=== PATIENT | female | born 1975 | race Caucasian/White ===

== ENCOUNTER → 2017-11-24 | Outpatient (CLI) | payer OTHER ==
--- NOTE | 2017-11-26 12:26 | MM ---
Reason for exam: screening (asymptomatic). Last mammogram was performed 2 years and 10 months ago. History: Family history of premenopausal breast cancer in aunt at age 38. Took hormonal contraceptives for 2 years. Physical Findings: A clinical breast exam by your physician is recommended on an annual basis and results should be correlated with mammographic findings. MG Screening Mammo w CAD Bilateral CC and MLO view(s) were taken. Prior study comparison: February 07, 2015, bilateral MG diagnostic mammo w CAD FL[facility]. November 14, 2013, bilateral MG diagnostic mammo w CAD [facility]. The breast tissue is heterogeneously dense. This may lower the sensitivity of mammography. No significant changes when compared with prior studies. ASSESSMENT: Benign, BI-RAD 2 RECOMMENDATION: Routine screening mammogram of both breasts in 1 year.
== END | disposition home or self-care (01) ==
LOC: RADMAMWWP 12:45
PROVIDERS: ATTEND Internal Medicine
DX: Z12.31 Encounter for screening mammogram for malignant neoplasm of breast (principal)
CPT/HCPCS: 77067

== ENCOUNTER 2017-11-25 07:32 | Day surgery (SDC) | payer OTHER ==
[2017-11-20 10:03] VITALS: BMI 29.2
[~2017-11-25 07:32] MED LIST: LACTATED RINGERS 1,000 ML IV SCH
[2017-11-25 08:04] VITALS: TEMP 98.8
[2017-11-25] MEDS ORDERED: PROPOFOL 10 MG/ML 20 ML VIAL IV ONE (08:38)
--- NOTE | 2017-11-25 09:05 | P.PCN ---
Date of Procedure: 11/25/17 Procedure(s) Performed: BRIEF HISTORY: Patient is a 42-year-old pleasant white female, scheduled for an elective colonoscopy as a part of evaluation of prior history of colon polyps and family history of colon cancer. Her mother was diagnosed with colon cancer at age 42. PROCEDURE PERFORMED: Colonoscopy. PREOPERATIVE DIAGNOSIS: History of colon polyps/family history of colon cancer. IV sedation per Anesthesia. PROCEDURE: After informed consent was obtained, the patient, was brought into the endoscopy unit. IV sedation was administered by Anesthesia under continuous monitoring. Digital rectal examination was normal. Initially the Olympus CF- 160 flexible video colonoscope was then inserted in the rectum, gradually advanced into the cecum without any difficulty. Careful examination was performed as the scope was gradually being withdrawn. Ileocecal valve and the appendiceal orifice were visualized and appeared normal. Prep was excellent. Mucosa of the cecum, ascending colon, transverse colon, descending colon, sigmoid colon, and rectum appeared normal. Retroflexion was performed in the rectum and no lesions were seen. The patient tolerated the procedure well. IMPRESSION: Normal-appearing colon from rectum to cecum with no evidence of colorectal neoplasia . RECOMMENDATIONS: Findings of this examination were discussed with the patient is a family. She was advised to have a repeat [place] colonoscopy in 5 years from now because of family history of colon cancer.
[2017-11-25 09:13] VITALS: RESP 18
[2017-11-25 09:25] VITALS: BP 118/75; PULSE 81
== END 2017-11-25 10:53 | disposition home or self-care (01) ==
LOC: ORWHC2ENDO 07:32
PROVIDERS: ATTEND Internal Medicine Gastroenterology
DX: Z12.11 Encounter for screening for malignant neoplasm of colon (principal); Z86.010 Personal history of colon polyps; Z80.0 Family history of malignant neoplasm of digestive organs; G40.909 Epilepsy, unspecified, not intractable, without status epilepticus; H54.7 Unspecified visual loss; R41.3 Other amnesia; Z79.82 Long term (current) use of aspirin; Z79.1 Long term (current) use of non-steroidal anti-inflammatories (NSAID); Z79.891 Long term (current) use of opiate analgesic; Z79.899 Other long term (current) drug therapy; Z91.041 Radiographic dye allergy status; Z88.5 Allergy status to narcotic agent
CPT/HCPCS: J2704; G0105

== ENCOUNTER → 2019-07-19 | Outpatient (CLI) | payer OTHER ==
--- NOTE | 2019-07-19 14:00 | MM ---
Reason for exam: screening (asymptomatic). Last mammogram was performed 1 year and 8 months ago. History: Family history of premenopausal breast cancer in aunt at age 38. Took hormonal contraceptives for 2 years. Physical Findings: A clinical breast exam by your physician is recommended on an annual basis and results should be correlated with mammographic findings. MG Screening Mammo w CAD Bilateral CC and MLO view(s) were taken. Prior study comparison: November 24, 2017, bilateral MG screening mammo w CAD. February 07, 2015, bilateral MG diagnostic mammo w CAD [facility]. The breast tissue is heterogeneously dense. This may lower the sensitivity of mammography. Asymmetric breast tissue left stable upper aspect. There is no discrete abnormality. ASSESSMENT: Negative, BI-RAD 1 RECOMMENDATION: Routine screening mammogram of both breasts in 1 year.
== END ==
LOC: RADMAMWWP 10:41
PROVIDERS: ATTEND Nurse Practitioner Family
DX: Z12.31 Encounter for screening mammogram for malignant neoplasm of breast (principal)
CPT/HCPCS: 77067

== ENCOUNTER → 2020-08-08 | Outpatient (CLI) | payer OTHER | END | disposition home or self-care (01) | LOC: LABWHC1 15:31 | PROVIDERS: ATTEND Family Medicine | DX: R05 Cough (principal); R06.02 Shortness of breath | CPT/HCPCS: U0003; C9803 ==

== ENCOUNTER → 2020-08-09 | Outpatient (CLI) | payer OTHER ==
--- NOTE | 2020-08-14 11:37 | MM ---
Reason for exam: screening (asymptomatic). Last mammogram was performed 1 year and 1 month ago. History: Patient has history of other cancer at age 43. Family history of premenopausal breast cancer in aunt at age 38. Took hormonal contraceptives for 2 years. Physical Findings: A clinical breast exam by your physician is recommended on an annual basis and results should be correlated with mammographic findings. MG Screening Mammo w CAD Bilateral CC and MLO view(s) were taken. Prior study comparison: July 19, 2019, bilateral MG screening mammo w CAD. November 24, 2017, bilateral MG screening mammo w CAD. No significant changes when compared with prior studies. ASSESSMENT: Benign, BI-RAD 2 RECOMMENDATION: Routine screening mammogram of both breasts in 1 year.
== END | disposition home or self-care (01) ==
LOC: RADMAMWWP 14:42
PROVIDERS: ATTEND Family Medicine
DX: Z12.31 Encounter for screening mammogram for malignant neoplasm of breast (principal)
CPT/HCPCS: 77067

== ENCOUNTER 2021-01-11 09:51 | Day surgery (SDC) | payer OTHER ==
[2021-01-09 14:57] VITALS: BMI 26.0
[~2021-01-11 09:51] MED LIST changes: +LIDOCAINE 1% (10MG/ML) FOR IV START INTRADERMA PRN
[2021-01-11] MEDS ORDERED: LACTATED RINGERS 1,000 ML IV ONE (10:01)
[2021-01-11 10:08] VITALS: TEMP 98.2
[2021-01-11] MEDS ORDERED: PROPOFOL 10 MG/ML 20 ML VIAL IV ONE (10:33)
[2021-01-11] MEDS ORDERED: LIDOCAINE 1% INJ 10MG/ML (20 ML MDV) ONE (10:33)
--- NOTE | 2021-01-11 10:51 | P.PCN ---
Date of Procedure: 01/11/21 Procedure(s) Performed: BRIEF HISTORY: Patient is a 45-year-old pleasant white female scheduled for an elective colonoscopy as a part of intermittent rectal bleeding. She also has family history of colon cancer diagnosed in her mother at age 42. Her last colonoscopy was 3 years ago. PROCEDURE PERFORMED: Colonoscopy. PREOPERATIVE DIAGNOSIS: Rectal bleeding and family history of colon cancer. IV sedation per Anesthesia. PROCEDURE: After informed consent was obtained, the patient, was brought into the endoscopy unit. IV sedation was administered by Anesthesia under continuous monitoring. Digital rectal examination was normal. Initially the Olympus CF-160 flexible video colonoscope was then inserted in the rectum, gradually advanced into the cecum without any difficulty. Careful examination was performed as the scope was gradually being withdrawn. Ileocecal valve and the appendiceal orifice were visualized and appeared normal. Prep was excellent. Mucosa of the cecum, ascending colon, transverse colon, descending colon, sigmoid colon, and rectum appeared normal. Retroflexion was performed in the rectum and no lesions were seen. The patient tolerated the procedure well. IMPRESSION: Normal-appearing colon from rectum to cecum no evidence of colitis or colorectal neoplasia . RECOMMENDATIONS: Findings of this examination were discussed with the patient as well as a family. She was advised to be a high-fiber diet and take fiber supplements a regular basis. She can have a repeat screening colonoscopy in 5 years.
[2021-01-11 10:56] VITALS: BP 109/73; PULSE 79; RESP 16
== END 2021-01-11 11:35 | disposition home or self-care (01) ==
LOC: ORWHC2ENDO 09:51
PROVIDERS: ATTEND Internal Medicine Gastroenterology
DX: K62.5 Hemorrhage of anus and rectum (principal); Z80.0 Family history of malignant neoplasm of digestive organs; M54.2 Cervicalgia; H54.8 Legal blindness, as defined in USA; F41.9 Anxiety disorder, unspecified; F32.9 Major depressive disorder, single episode, unspecified; R41.3 Other amnesia; G43.909 Migraine, unspecified, not intractable, without status migrainosus; Z79.82 Long term (current) use of aspirin; Z79.899 Other long term (current) drug therapy; Z88.5 Allergy status to narcotic agent; Z91.048 Other nonmedicinal substance allergy status
CPT/HCPCS: 45378; J2001; J2704

== ENCOUNTER 2022-02-10 18:51 | Emergency (ER) | payer OTHER ==
[2022-02-10 19:00] VITALS: BP 133/82; PULSE 60; RESP 20; TEMP 97.7
--- NOTE | 2022-02-10 19:25 | XR ---
EXAMINATION TYPE: XR knee complete LT DATE OF EXAM: 02/10/2022 COMPARISON: NONE HISTORY: Pain TECHNIQUE: 3 views FINDINGS: There is no evidence of fracture nor dislocation. Joint spaces are normal. No sign of knee joint effusion. IMPRESSION: Negative left knee exam. No fracture
[2022-02-10] MEDS ORDERED: ACET/COD 300 MG/30 MG STARTER PACK 6 TAB BTL PO STA (20:04)
--- NOTE | 2022-02-10 20:07 | ED ---
Lower Extremity Injury HPI - General Chief Complaint: Extremity Injury, Lower Stated Complaint: lt knee Time Seen by Provider: 02/10/22 19:40 Source: patient, RN notes reviewed Mode of arrival: ambulatory Limitations: no limitations - History of Present Illness Initial Comments: This is a 46-year-old female who presents to the emergency department for left knee pain. Patient states that 5 days ago, she was walking, and heard a pop in her knee. Since then, she has continued to hear more pops and crunches in her knee. The pain has continued to progress, and she is having difficulty bending down at work. 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 She has had multiple issues with that knee in the past due to a history of running track when she was younger. She's never seen an orthopedic provider, states that [facility]. She is taking Tylenol, however she is unable to take NSAIDs due to a new medication she started while she is in the process of being worked up for bladder cancer. She tried applying heat to the knee last night, and wonders if that made her symptoms worse, she states that ice was more helpful. Denies any fevers, chills, sore throat, cough, dyspnea, chest pain, palpitations, abdominal pain, nausea, vomiting, diarrhea, back pain, or headaches. MD Complaint: knee injury Onset/Timin -: days(s) Injury: Knee: Left - Related Data Home Medications Medication Instructions Recorded Confirmed Aspirin EC [Ecotrin Low Dose] 81 mg PO DAILY 11/20/17 01/09/21 Propranolol [Inderal] 40 mg PO DAILY PRN 01/09/21 01/09/21 Previous Rx's Medication Instructions Recorded Acetaminophen-Codeine 300-30mg 1 tab PO Q6H PRN 3 Days #12 tablet 02/10/22 [Tylenol w/codeine #3] Allergies Allergy/AdvReac Type Severity Reaction Status Date / Time meperidine HCl [From Demerol] Allergy Nausea & Verified 02/10/22 19:00 Vomiting propoxyphene napsylate Allergy Nausea & Verified 02/10/22 19:00 [From Darvocet-N] Vomiting mri iodine Allergy Anaphylaxis Uncoded 02/10/22 19:00 Review of Systems ROS Statement: Those systems with pertinent positive or pertinent negative responses have been documented in the HPI. ROS Other: All systems not noted in ROS Statement are negative. Past Medical History Past Medical History: Eye Disorder, Memory Impairment, Neurologic Disorder Additional Past Medical History / Comment(s): MIGRAINES. 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 NO SEIZURES SINCE 08/2106 WHILE IN THE HOSPITAL. CHRONIC NECK PAIN, in AUGUST AND NOVEMBER HAD BLOOD AFTER BM History of Any Multi-Drug Resistant Organisms: None Reported Past Surgical History: Appendectomy, Cholecystectomy, Hysterectomy Additional Past Surgical History / Comment(s): COLONOSCOPY Past Anesthesia/Blood Transfusion Reactions: No Reported Reaction Past Psychological History: Anxiety, Depression Smoking Status: Never smoker Past Alcohol Use History: None Reported Past Drug Use History: None Reported - Past Family History Mother Family Medical History: Cancer General Exam Limitations: no limitations General appearance: alert, in no apparent distress Head exam: Present: atraumatic, normocephalic, normal inspection Respiratory exam: Present: normal lung sounds bilaterally. Absent: respiratory distress, wheezes, rales, rhonchi, stridor Cardiovascular Exam: Present: regular rate, normal rhythm, normal heart sounds. Absent: systolic murmur, diastolic murmur, rubs, gallop, clicks Extremities exam: Present: other (Tenderness and mild swelling over the left patella. Limited active and passive ROM secondary to pain.) Neurological exam: Present: alert, oriented X3, CN II-XII intact Psychiatric exam: Present: normal affect, normal mood Skin exam: Present: warm, dry, intact, normal color. Absent: rash Course Vital Signs 02/10/22 18:58 Temperature 97.7 F Pulse Rate 60 Respiratory 20 Rate Blood Pressure 133/82 O2 Sat by Pulse 100 Oximetry Medical Decision Making - Medical Decision Making This is a 46-year-old female who presents to the emergency department for left knee pain. X-ray reveals no acute osseous abnormalities. Physical exam does reveal tenderness and swelling over the left patella. Tylenol #3 was prescribed as the patient is unable to take NSAIDs and Tylenol has not been effective. Kn ee immobilizer was applied. Advised she use this or purchase [id number] knee brace or use an Akira bandage for stability and to limit bending of the knee, which can further exacerbate the injury. Information for follow-up with [facility] provided, advised she contact them for a follow-up appointment. Return precautions reviewed in depth, the patient is instructed to return to the emergency department with any new, worsening, or concerning symptoms. Patient verbalized understanding. This case was discussed in detail with the attending ED physician. Presentation, findings, and treatment plan discussed in detail as well. - Radiology Data Radiology results: report reviewed, image reviewed Disposition Clinical Impression: Knee sprain Disposition: HOME SELF-CARE Instructions (If sedation given, give patient instructions): Knee Sprain (ED), Knee Immobilizer (ED) Additional Instructions: Return to the emergency department with any new, worsening, or concerning symptoms. Contact orthopedics as listed below for a follow-up appointment. Use the knee immobilizer as needed for stability and to avoid bending the knee. You may also purchase a knee brace over the counter or use an Akira bandage if that is more comfortable. Prescriptions: Acetaminophen-Codeine 300-30mg [Tylenol w/codeine #3] 1 tab PO Q6H PRN 3 Days #12 tablet PRN Reason: Pain Is patient prescribed a controlled substance at d/c from ED?: Yes When asked, does pt state using other controlled substances?: No If prescribed controlled substance>3 days was MAPS reviewed?: Prescribed <3 Days Referrals: Tremayne Marina MD [Primary Care Provider] - 1-2 days Saad Alfonso DO [Doctor of Osteopathic Medicine] - 1-2 days
== END 2022-02-10 21:23 | disposition home or self-care (01) ==
LOC: EC 18:51
DX: S83.92XA Sprain of unspecified site of left knee, initial encounter (principal); Z88.6 Allergy status to analgesic agent; Z88.5 Allergy status to narcotic agent; Z91.041 Radiographic dye allergy status; X50.9XXA Other and unspecified overexertion or strenuous movements or postures, initial encounter; Y93.01 Activity, walking, marching and hiking
CPT/HCPCS: 73562; 99283; L1830

== ENCOUNTER 2022-09-30 12:05 | Emergency (ER) | payer BC, OTHER ==
[2022-09-30 12:47] VITALS: TEMP 96.8
[2022-09-30] MEDS ORDERED: KETOROLAC 15 MG/ML 1 ML VIAL IM STA (13:11)
[2022-09-30] MEDS ORDERED: MORPHINE SULFATE 4 MG/ML SYRINGE IM STA (13:11)
[2022-09-30] MEDS ORDERED: BACLOFEN 10 MG TAB PO ONE (13:11)
--- NOTE | 2022-09-30 13:22 | XR ---
EXAMINATION TYPE: XR lumbar spine 2 or 3V DATE OF EXAM: 09/30/2022 CLINICAL HISTORY: pain TECHNIQUE: Three views of the lumbar spine are submitted. COMPARISON: None. FINDINGS: There are 5 lumbar type vertebral bodies identified. The lumbar spine shows satisfactory alignment w ithout evidence of acute fracture or dislocation. Vertebral body heights are within normal limits. Disc spaces are within normal limits. The overlying soft tissue appears unremarkable. Cholecystectom y clips in the right upper quadrant. IMPRESSION: No acute fracture or dislocation is seen in the lumbar spine.
--- NOTE | 2022-09-30 13:22 | ED ---
Back Pain HPI - General Chief Complaint: Back Pain/Injury Stated Complaint: recheck Time Seen by Provider: 09/30/22 12:46 Source: patient, RN notes reviewed Mode of arrival: ambulatory Limitations: no limitations - History of Present Illness Initial Comments: This is a 47-year-old female who presents to the emergency department for low back pain. Patient states that she was bending over at work yesterday, and heard a pop in her lower back. She has since had ongoing pain and intermittent spasms to the lower back. Denies any loss of bowel/bladder control or saddle anesthesia. States that she does have chronic back problems that have since been exacerbated by this injury. She's not currently taking any medication for her pain. Denies any fevers, chills, sore throat, cough, dyspnea, chest pain, palpitations, abdominal pain, nausea, vomiting, diarrhea, or headaches. MD Complaint: back pain Onset/Timin -: days(s) Place: work Context: bending - Related Data Home Medications Medication Instructions Recorded Confirmed Aspirin EC [Ecotrin Low Dose] 81 mg PO DAILY 11/20/17 01/09/21 Propranolol [Inderal] 40 mg PO DAILY PRN 01/09/21 01/09/21 Previous Rx's Medication Instructions Recorded Acetaminophen-Codeine 300-30mg 1 tab PO Q6H PRN 3 Days #12 tablet 02/10/22 [Tylenol w/codeine #3] Cyclobenzaprine [Flexeril] 10 mg PO TID PRN #15 tab 09/30/22 Diclofenac Sodium [Voltaren] 75 mg PO BID PRN #15 tab 09/30/22 Allergies Allergy/AdvReac Type Severity Reaction Status Date / Time meperidine HCl [From Demerol] Allergy Nausea & Verified 09/30/22 12:34 Vomiting propoxyphene napsylate Allergy Nausea & Verified 09/30/22 12:34 [From Darvocet-N] Vomiting shellfish derived [Shellfish] Allergy Anaphylaxis Verified 09/30/22 12:34 mri iodine Allergy Anaphylaxis Uncoded 09/30/22 12:34 Review of Systems ROS Statement: Those systems with pertinent positive or pertinent negative responses have been documented in the HPI. ROS Other: All systems not noted in ROS Statement are negative. Past Medical History Past Medical History: Eye Disorder, Memory Impairment, Neurologic Disorder Additional Past Medical History / Comment(s): MIGRAINES. 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 NO SEIZURES SINCE 08/2106 WHILE IN THE HOSPITAL. CHRONIC NECK PAIN, in AUGUST AND NOVEMBER HAD BLOOD AFTER BM. COVID 08/21 History of Any Multi-Drug Resistant Organisms: None Reported Past Surgical History: Appendectomy, Cholecystectomy, Hysterectomy Additional Past Surgical History / Comment(s): COLONOSCOPY Past Anesthesia/Blood Transfusion Reactions: No Reported Reaction Past Psychological History: Anxiety, Depression Smoking Status: Never smoker Past Alcohol Use History: None Reported Past Drug Use History: None Reported - Past Family History Mother Family Medical History: Cancer General Exam Limitations: no limitations General appearance: alert, in distress Head exam: Present: atraumatic, normocephalic, normal inspection Respiratory exam: Present: normal lung sounds bilaterally. Absent: respiratory distress, wheezes, rales, rhonchi, stridor Cardiovascular Exam: Present: regular rate, normal rhythm, normal heart sounds. Absent: systolic murmur, diastolic murmur, rubs, gallop, clicks Back exam: Present: normal inspection, tenderness (left lower back), other (Tenderness to palpation over the left lower back.) Neurological exam: Present: alert, oriented X3, CN II-XII intact Psychiatric exam: Present: normal affect, normal mood Skin exam: Present: warm, dry, intact, normal color. Absent: rash Course Vital Signs 09/30/22 09/30/22 09/30/22 12:29 12:46 14:24 Temperature 97.9 F 96.8 F L 96.8 F L Pulse Rate 70 77 71 Respiratory 20 16 18 Rate Blood Pressure 120/80 117/56 113/65 O2 Sat by Pulse 100 97 Oximetry Medical Decision Making - Medical Decision Making This is a 47-year-old female who presents to the emergency department for lower back pain. Was pt. sent in by a medical professional or institution? @ -No Did you speak to anyone other than the patient for history? @ -No Did you review nursing and triage notes? @ -Yes, and I agree, it is accurate with regards to the patient's symptoms. Were old charts reviewed? @ -No Differential Diagnosis? @ -Differential Back Pain: Strain, zoster, cauda equina syndrome, epidural abscess, vertebral osteomyelitis, discitis, fracture, subluxation, disc herniation, DJD, spinal stenosis, dissection, AAA, pancreatitis, peptic ulcer disease, pyelonephritis, kidney stone, this is not meant to be an all-inclusive list. X-rays interpreted by me (1pt min.)? @ -X-ray of the lumbar spine obtained. My interpretation identifies no acute fractures. What testing was considered but not performed? (CT, X-rays, U/S, labs)? Why? @ -None What meds were considered but not given? Why? @ -None Did you discuss the management of the patient with other professionals? @ -No Did you reconcile home meds? @ -No Was smoking cessation discussed for >3mins.? @ -No Was critical care preformed (if so, how long)? @ -No Were there social determinants of health that impacted care today? How? (Homelessness, low income, unemployed, alcoholism, drug addiction, transportation, low edu. Level, literacy, decrease access to med. care, prison, rehab)? @ -No Was there de-escalation of care discussed even if they declined? (Discuss DNR or withdrawal of care, Hospice)? @ -No What co-morbidities impacted this encounter? (DM, HTN, Smoking, COPD, CAD, Cancer, CVA, Hep., AIDS, mental health diagnosis, sleep apnea, morbid obesity)? @ -Morbid obesity Was patient admitted / discharged? @ -Discharged. X-ray of the lumbar spine obtained revealing no acute fractures or other notable irregularities. Advised the patient that she likely has a lumbar strain. Her pain was well controlled in the emergency department. Prescription for diclofenac and Flexeril provided with dosing instructions reviewed. She is instructed to avoid taking any other czxy-jpx-mttfers anti- inflammatories with the diclofenac and to only take Tylenol with this. She is also advised to avoid driving or operating machinery with the Flexeril as it will be sedating. She will otherwise follow up with pain management and her PCP for reevaluation and ongoing management. Red flag signs and symptoms reviewed, such as saddle anesthesia and loss of bowel/bladder control, which would necessitate the need for her to return to the emergency department immediately. Undiagnosed new problem with uncertain prognosis? @ -None Drug Therapy requiring intensive monitoring for toxicity (Heparin, Nitro, Insulin, Cardizem)? @ -None Were any procedures done? @ -None Diagnosis/symptom? @ -Lumbar strain Acute, or Chronic, or Acute on Chronic? @ -Acute Uncomplicated (without systemic symptoms) or Complicated (systemic symptoms)? @ -Uncomplicated Side effects of treatment? @ -None Exacerbation, Progression, or Severe Exacerbation] @ -Not applicable Poses a threat to life or bodily function? @ -No Return precautions reviewed in depth, the patient is instructed to return to the emergency department with any new, worsening, or concerning symptoms. Patient verbalized understanding. This case was discussed in detail with the attending ED physician, Dr. Roberts. Presentation, findings, and treatment plan discussed in detail as well. - Radiology Data Radiology results: report reviewed, image reviewed Disposition Clinical Impression: Strain of lumbar region Disposition: HOME SELF-CARE Condition: Stable Instructions (If sedation given, give patient instructions): Low Back Strain (ED), Acute Low Back Pain (ED) Additional Instructions: Return to the emergency department with any new, worsening, or concerning symptoms. You can take the diclofenac up to twice daily as needed for pain. If you choose to take this, do not take ibuprofen or any other uglx-lwa-[id number] anti-inflammatories. The Flexeril can be taken up to 3 times daily. Be aware that this is sedating and you should not drive or operate machinery when taking this. Follow up with your primary care provider in 1-2 days. Prescriptions: Cyclobenzaprine [Flexeril] 10 mg PO TID PRN #15 tab PRN Reason: Spasms Diclofenac Sodium [Voltaren] 75 mg PO BID PRN #15 tab PRN Reason: Pain Is patient prescribed a controlled substance at d/c from ED?: No Referrals: Tremayne Marina MD [Primary Care Provider] - 1-2 days
[2022-09-30] MEDS ORDERED: ACET/COD 300 MG/30 MG STARTER PACK 6 TAB BTL PO STA (13:35)
[2022-09-30] MEDS ORDERED: CYCLOBENZAPRINE 10MG STARTER 3 TAB BTL PO STA (13:35)
[2022-09-30] MEDS ORDERED: IBUPROFEN 600 MG STARTER PACK 4 TAB BTL PO STA (13:35)
[2022-09-30 14:25] VITALS: BP 113/65; PULSE 71; RESP 18
== END 2022-09-30 14:26 | disposition home or self-care (01) ==
LOC: EC 12:05
DX: S39.012A Strain of muscle, fascia and tendon of lower back, initial encounter (principal); F41.9 Anxiety disorder, unspecified; F32.A Depression, unspecified; Z86.16 Personal history of COVID-19; Z88.5 Allergy status to narcotic agent; Z91.013 Allergy to seafood; Z88.8 Allergy status to other drugs, medicaments and biological substances; X50.9XXA Other and unspecified overexertion or strenuous movements or postures, initial encounter; Y99.0 Civilian activity done for income or pay
CPT/HCPCS: 72100; 99283; 96372 ×2; J2270; J1885

== ENCOUNTER → 2022-12-24 | Outpatient (CLI) | payer OTHER ==
--- NOTE | 2022-12-24 21:20 | MR ---
EXAMINATION TYPE: MR lumbar spine wo con DATE OF EXAM: 12/24/2022 COMPARISON: none HISTORY: no prior mr prior xrays on pacs, low back pain with popping and pain to left leg for about 2 months, no surgery ,no trauma, no CA TECHNIQUE: Multiplanar, multisequence images of the lumbar spine were acquired without IV contrast. L1-L2: Normal disc appearance without desiccation. No herniation, protrusion or disc bulging. No ca nal stenosis is present. Foramina are patent bilaterally. L2-L3: Normal disc appearance without desiccation. No herniation, protrusion or disc bulging. No ca nal stenosis is present. Foramina are patent bilaterally. L3-L4: Normal disc appearance without desiccation. Mild posterior disc bulge. No herniation or centra l stenosis. No canal stenosis is present. Foramina are patent bilaterally. L4-L5: Normal disc appearance without desiccation. No herniation, protrusion or disc bulging. No ca nal stenosis is present. Foramina are patent bilaterally. L4 hemangioma. L5-S1: Normal disc appearance without desiccation. No herniation, protrusion or disc bulging. No ca nal stenosis is present. Foramina are patent bilaterally. Lumbar segments are intact. No paraspinal masses are identified. Conus medullaris has a normal appe arance. IMPRESSION: 1. Mild disc bulge at L3-4. 2. L4 hemangioma.
== END | disposition home or self-care (01) ==
LOC: RADMRIMAIN 18:33
PROVIDERS: ATTEND Psychiatry & Neurology Neurology
DX: M51.36 Other intervertebral disc degeneration, lumbar region (principal); D18.09 Hemangioma of other sites
CPT/HCPCS: 72148

== ENCOUNTER → 2024-01-20 | Outpatient (CLI) | payer OTHER ==
--- NOTE | 2024-01-25 10:30 | MM ---
Reason for Exam: Screening (asymptomatic). Last mammogram was performed 3 year(s) and 5 month(s) ago. Patient History: Menarche at age 13. First Full-Term at age 26. Left ovary removed at age 30. Hysterectomy at age 30. Other cancer, age 43. Patient used Hormonal Contraceptives for 2 years. Maternal aunt had breast cancer, age 38. Risk Values: Shweta 5 year model risk: 1.0%. NCI Lifetime model risk: 10.3%. Prior Study Comparison: 11/24/2017 Bilateral Screening Mammogram, [facility]. 07/19/2019 Bilateral Screening Mammogram, [facility]. 08/09/2020 Bilateral Screening Mammogram, [facility]. Tissue Density: There are scattered areas of fibroglandular density. Findings: Analyzed By CAD. Right breast: There is no suspicious group of microcalcifications or new suspicious mass. Left breast: Asymmetry left breast 8.6-the nipple on CC view. Overall Assessment: Negative, BI-RAD 1 Management: Diagnostic Mammogram of the left breast in [address] [facility] will attempt to contact patient to return for supplemental views and ultrasound if indicated. Patient should continue monthly self-breast exams. A clinical breast exam by your physician is recommended on an annual basis. This exam should not preclude additional follow-up of suspicious palpable abnormalities. Note on Shweta scores and lifetime risk: 1. A Shweta score greater than 3% is considered moderate risk. If this is the case, consider specialist referral to assess eligibility for a risk reducing agent. 2. If overall lifetime risk for the development of breast cancer is 20% or higher, the patient may qualify for future screening with alternating mammogram and breast MRI. Electronically signed and approved by: Wilton Najera DO
== END | disposition home or self-care (01) ==
LOC: RADMAMWWP 13:07
PROVIDERS: ATTEND Family Medicine
DX: Z12.31 Encounter for screening mammogram for malignant neoplasm of breast (principal); R92.323 Mammographic fibroglandular density, bilateral breasts; Z80.3 Family history of malignant neoplasm of breast
CPT/HCPCS: 77067

== ENCOUNTER → 2024-06-15 | Outpatient (CLI) | payer OTHER ==
--- NOTE | 2024-06-15 21:32 | MR ---
EXAMINATION TYPE: MR brain wo/w con DATE OF EXAM: 06/15/2024 9:25 PM COMPARISON: None. CLINICAL INDICATION: Female, 48 years old with history of R41.3 OTHER AMNESIA G43.109 H54.3 Z86.73, M jimmy loss, Migraines with aura, Bilat. vision loss, Hx of CVA, Dizziness TECHNIQUE: Multiplanar and multispin-echo imaging of the brain was performed both before and after th e administration of contrast. CONTRAST: Patient received 7.5 mL intravenous Gadobutrol gadolinium contrast. FINDINGS: The ventricles, basal cisterns and sulci overlying the cerebral convexities are within normal limits. There is no evidence for midline shift or mass effect. Acute intracranial hemorrhage or extra-axial collection is not evident. There are no abnormal areas of increased or decreased signal intensity within the brain parenchyma. Following contrast administration, there is no evidence for pathologic enhancement or enhancing mass. The paranasal sinuses are well-aerated. Mild chronic left-sided mastoiditis. IMPRESSION: Unremarkable pre and postcontrast enhanced MRI of the brain. Mild chronic left-sided mastoiditis. [facility], , 06/15/2024 9:29 PM
== END | disposition home or self-care (01) ==
LOC: RADMRIMAIN 20:45
PROVIDERS: ATTEND Family Medicine
DX: R41.3 Other amnesia (principal); G43.109 Migraine with aura, not intractable, without status migrainosus; H54.3 Unqualified visual loss, both eyes; Z86.73 Personal history of transient ischemic attack (TIA), and cerebral infarction without residual deficits
CPT/HCPCS: 70553; A9585

== ENCOUNTER 2024-08-24 15:54 | Emergency (ER) | payer OTHER ==
--- NOTE | 2024-08-24 16:33 | ED ---
Abdominal Pain HPI - General Chief Complaint: Nausea/Vomiting/Diarrhea Stated Complaint: N/V/D rash Time Seen by Provider: 08/24/24 16:14 Source: patient, RN notes reviewed Mode of arrival: ambulatory Limitations: no limitations - History of Present Illness Initial Comments: This is a 48-year-old female who presents to the emergency department for abdomi nal pain, nausea, and vomiting. States that 4 days ago she started feeling generally unwell. She had URI symptoms and a headache. However, symptoms then progressed to abdominal pain, nausea, and vomiting. She continues to have a headache and states that her neck is now painful. She has also noticed a rash on her left breast. She saw her PCP today who tested her for COVID, influenza, and strep, which were all negative. They advised she come to the emergency department for IV fluids and further evaluation. She last threw up a few hours ago and still feels nauseous. Continues to have abdominal pain that she describes as diffuse. Denies any fevers, but states that she feels very hot and flushed. MD Complaint: abdominal pain - Related Data Home Medications Medication Instructions Recorded Confirmed Aspirin EC [Ecotrin Low Dose] 81 mg PO DAILY 11/20/17 01/09/21 Propranolol [Inderal] 40 mg PO DAILY PRN 01/09/21 01/09/21 Previous Rx's Medication Instructions Recorded Acetaminophen-Codeine 300-30mg 1 tab PO Q6H PRN 3 Days #12 tablet 02/10/22 [Tylenol w/codeine #3] Cyclobenzaprine [Flexeril] 10 mg PO TID PRN #15 tab 09/30/22 Diclofenac Sodium [Voltaren] 75 mg PO BID PRN #15 tab 09/30/22 Dicyclomine [Bentyl] 20 mg PO QID PRN #30 tablet 08/24/24 Ketorolac [Toradol] 10 mg PO Q6HR PRN #15 tab 08/24/24 Ondansetron Odt [Zofran Odt] 4 mg PO Q8HR PRN #20 tab 08/24/24 Prochlorperazine [Compazine] 10 mg PO Q6H PRN #20 tab 08/24/24 Allergies Allergy/AdvReac Type Severity Reaction Status Date / Time meperidine HCl [From Demerol] Allergy Nausea & Verified 08/24/24 16:11 Vomiting propoxyphene napsylate Allergy Nausea & Verified 08/24/24 16:11 [From Darvocet-N] Vomiting shellfish derived [Shellfish] Allergy Anaphylaxis Verified 08/24/24 16:11 mri iodine Allergy Anaphylaxis Uncoded 08/24/24 16:11 Review of Systems ROS Statement: Those systems with pertinent positive or pertinent negative responses have been documented in the HPI. ROS Other: All systems not noted in ROS Statement are negative. Past Medical History Past Medical History: Eye Disorder, Memory Impairment, Neurologic Disorder Additional Past Medical History / Comment(s): MIGRAINES. 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 NO SEIZURES SINCE 08/2106 WHILE IN THE HOSPITAL. CHRONIC NECK PAIN, in AUGUST AND NOVEMBER HAD BLOOD AFTER BM. COVID 08/21 History of Any Multi-Drug Resistant Organisms: None Reported Past Surgical History: Appendectomy, Cholecystectomy, Hysterectomy Additional Past Surgical History / Comment(s): COLONOSCOPY Past Anesthesia/Blood Transfusion Reactions: No Reported Reaction Past Psychological History: Anxiety, Depression Smoking Status: Never smoker Past Alcohol Use History: None Reported Past Drug Use History: None Reported - Past Family History Mother Family Medical History: Cancer General Exam Limitations: no limitations General appearance: alert, in no apparent distress Head exam: Present: atraumatic, normocephalic, normal inspection Eye exam: Present: normal appearance, PERRL, EOMI. Absent: scleral icterus, conjunctival injection, periorbital swelling ENT exam: Present: other (Mild posterior pharyngeal erythema) Neck exam: Present: normal inspection. Absent: tenderness, meningismus, lymphadenopathy Respiratory exam: Present: normal lung sounds bilaterally. Absent: respiratory distress, wheezes, rales, rhonchi, stridor Cardiovascular Exam: Present: regular rate, normal rhythm GI/Abdominal exam: Present: soft, tenderness (diffuse), normal bowel sounds. Absent: distended Neurological exam: Present: alert, oriented X3, CN II-XII intact Psychiatric exam: Present: normal affect, normal mood Skin exam: Present: other (3 smooth red lesions on the superior aspect of the left breast.) Course Vital Signs 08/24/24 08/24/24 08/24/24 16:07 18:27 22:33 Temperature 98.0 F 97.7 F 97.8 F Pulse Rate 72 76 66 Respiratory 18 18 19 Rate Blood Pressure 124/67 125/80 107/69 O2 Sat by Pulse 97 99 95 Oximetry Medical Decision Making - Medical Decision Making This is a 48-year-old female who presents to the emergency department for abdominal pain, nausea, and vomiting. Was pt. sent in by a medical professional or institution? @ -No Did you speak to anyone other than the patient for history? @ -No Did you review nursing and triage notes? @ -Yes, and I agree, it is accurate with regards to the patient's symptoms. Were old charts reviewed? @ -No Differential Diagnosis? @ -Differential Abdominal Pain Women: Appendicitis, Cholecystitis, diverticulosis, ischemic bowel, pancreatitis, hepatitis, UTI, gastroenteritis, AAA, incarcerated hernia, bowel obstruction, constipation, inflammatory bowel, hepatitis, peptic ulcer disease, splenic infarction, perforated viscus, vulvitis, ovarian torsion, PID, kidney stone, placenta abruption, this is not meant to be an all-inclusive list EKG interpreted by me (3pts min.)? @ -EKG interpreted by me demonstrating the following: Sinus rhythm. Ventricular rate 65 bpm, GA interval 175 ms, QRS duration 85 ms, QTc 386 ms. X-rays interpreted by me (1pt min.)? @ -Not obtained CT interpreted by me (1pt min.)? @ -CT scan of the abdomen and pelvis obtained. My interpretation identifies no bowel wall thickening or free air. U/S interpreted by me (1pt. min.)? @ -Not obtained What testing was considered but not performed? (CT, X-rays, U/S, labs)? Why? @ -None What meds were considered but not given? Why? @ -None Did you discuss the management of the patient with other professionals? @ -No Did you reconcile home meds? @ -No Was smoking cessation discussed for >3mins.? @ -No Was critical care preformed (if so, how long)? @ -No Were there social determinants of health that impacted care today? How? (Homelessness, low income, unemployed, alcoholism, drug addiction, transportation, low edu. Level, literacy, decrease access to med. care, [place] [facility], rehab)? @ -No Was there de-escalation of care discussed even if they declined? (Discuss DNR or withdrawal of care, Hospice)? @ -No What co-morbidities impacted this encounter? (DM, HTN, Smoking, COPD, CAD, Cancer, CVA, Hep., AIDS, mental health diagnosis, sleep apnea, morbid obesity)? @ -None Was patient admitted / discharged? @ -Discharged. Lab work demonstrates mild leukocytosis of 11.0 and is otherwise unremarkable. Urinalysis negative for signs of infection. COVID, influenza, and rapid strep test obtained at her PCPs office was negative. CT scan of the abdomen and pelvis reveals no acute process. The rash on her breast consisted of 3 small erythematous lesions that were nonspecific. Given that these were not painful, itchy, or otherwise bothersome, advised to just continue to keep an eye on it. She had no meningeal signs on exam. Symptoms likely related to some sort of viral syndrome. Symptoms managed in the emergency department and she was tolerating oral intake. Prescription for Toradol, Bentyl, Zofran, and Compazine provided with dosing instructions reviewed. Advis ed close follow-up with her PCP for reevaluation. Patient discharged home in stable condition. Case discussed with ED attending Dr. Marks. Return precautions reviewed in depth, the patient is instructed to return to the emergency department with any new, worsening, or concerning symptoms. Patient verbalized understanding. Undiagnosed new problem with uncertain prognosis? @ -None Drug Therapy requiring intensive monitoring for toxicity (Heparin, Nitro, Insulin, Cardizem)? @ -None Were any procedures done? @ -None Diagnosis/symptom? @ -Viral syndrome, abdominal pain, nausea and vomiting, headache, rash Acute, or Chronic, or Acute on Chronic? @ -Acute Uncomplicated (without systemic symptoms) or Complicated (systemic symptoms)? @ -Uncomplicated Side effects of treatment? @ -None Exacerbation, Progression, or Severe Exacerbation] @ -Not applicable Poses a threat to life or bodily function? @ -No - Lab Data Result diagrams: 08/24/24 16:46 08/24/24 16:46 Lab Results 08/24/24 08/24/24 08/24/24 Range/Units 16:46 16:46 16:46 WBC 11.0 H (3.8-10.6) k/uL RBC 4.90 (3.80-5.40) m/uL Hgb 13.8 (11.4-16.0) gm/dL Hct 44.5 (34.0-46.0) % MCV 90.8 (80.0-100.0) fL MCH 28.1 (25.0-35.0) pg MCHC 30.9 L (31.0-37.0) g/dL RDW 14.0 (11.5-15.5) % Plt Count 345 (150-450) k/uL MPV 7.4 Neutrophils % 78 % Lymphocytes % 13 % Monocytes % 5 % Eosinophils % 4 % Basophils % 0 % Neutrophils # 8.6 H (1.3-7.7) k/uL Lymphocytes # 1.4 (1.0-4.8) k/uL Monocytes # 0.5 (0-1.0) k/uL Eosinophils # 0.4 (0-0.7) k/uL Basophils # 0.0 (0-0.2) k/uL Sodium 135 L (137-145) mmol/L Potassium 4.2 (3.5-5.1) mmol/L Chloride 106 (98-107) mmol/L Carbon Dioxide 22 (22-30) mmol/L Anion Gap 7 mmol/L BUN 16 (7-17) mg/dL Creatinine 0.69 (0.52-1.04) mg/dL Est GFR (CKD-EPI)AfAm >90 (>60 ml/min/1.73 sqM) Est GFR (CKD-EPI)NonAf >90 (>60 ml/min/1.73 sqM) Glucose 93 (74-99) mg/dL Plasma Lactic Acid Ulises 0.8 (0.7-2.0) mmol/L Calcium 9.0 (8.4-10.2) mg/dL Total Bilirubin 0.4 (0.2-1.3) mg/dL AST 25 (14-36) U/L ALT 23 (4-34) U/L Alkaline Phosphatase 75 (38-126) U/L Total Protein 6.2 L (6.3-8.2) g/dL Albumin 3.7 (3.5-5.0) g/dL Amylase 59 (30-110) U/L Lipase 65 (23-300) U/L Urine Color Urine Appearance (Clear) Urine pH (5.0-8.0) Ur Specific [place] (1.001-1.035) Urine Protein (Negative) Urine Glucose (UA) (Negative) Urine Ketones (Negative) Urine Blood (Negative) Urine Nitrite (Negative) Urine Bilirubin (Negative) Urine Urobilinogen (<2.0) mg/dL Ur Leukocyte Esterase (Negative) 08/24/24 Range/Units 16:54 WBC (3.8-10.6) k/uL RBC (3.80-5.40) m/uL Hgb (11.4-16.0) gm/dL Hct (34.0-46.0) % MCV (80.0-100.0) fL MCH (25.0-35.0) pg MCHC (31.0-37.0) g/dL RDW (11.5-15.5) % Plt Count (150-450) k/uL MPV Neutrophils % % Lymphocytes % % Monocytes % % Eosinophils % % Basophils % % Neutrophils # (1.3-7.7) k/uL Lymphocytes # (1.0-4.8) k/uL Monocytes # (0-1.0) k/uL Eosinophils # (0-0.7) k/uL Basophils # (0-0.2) k/uL Sodium (137-145) mmol/L Potassium (3.5-5.1) mmol/L Chloride (98-107) mmol/L Carbon Dioxide (22-30) mmol/L Anion Gap mmol/L BUN (7-17) mg/dL Creatinine (0.52-1.04) mg/dL Est GFR (CKD-EPI)AfAm (>60 ml/min/1.73 sqM) Est GFR (CKD-EPI)NonAf (>60 ml/min/1.73 sqM) Glucose (74-99) mg/dL Plasma Lactic Acid [place] (0.7-2.0) mmol/L Calcium (8.4-10.2) mg/dL Total Bilirubin (0.2-1.3) mg/dL AST (14-36) U/L ALT (4-34) U/L Alkaline Phosphatase (38-126) U/L Total Protein (6.3-8.2) g/dL Albumin (3.5-5.0) g/dL Amylase (30-110) U/L Lipase (23-300) U/L Urine Color Light Yellow Urine Appearance Clear (Clear) Urine pH 5.0 (5.0-8.0) Ur Specific [place] 1.020 (1.001-1.035) Urine Protein Negative (Negative) Urine Glucose (UA) Negative (Negative) Urine Ketones Negative (Negative) Urine Blood Negative (Negative) Urine Nitrite Negative (Negative) Urine Bilirubin Negative (Negative) Urine Urobilinogen <2.0 (<2.0) mg/dL Ur Leukocyte Esterase Negative (Negative) - Radiology Data Radiology results: report reviewed, image reviewed Disposition Clinical Impression: Abdominal pain, Nausea and vomiting, Rash, Headache, Viral syndrome Disposition: HOME SELF-CARE Instructions (If sedation given, give patient instructions): Acute Nausea and Vomiting (ED), Abdominal Pain (ED) Additional Instructions: Return to the emergency department with any new, worsening, or concerning symptoms. Take the Toradol with Tylenol as needed for pain relief. If you choose to take the Toradol, do not take any other anti-inflammatories such as ibuprofen, take one or the other. You can take the Zofran up to every 8 hours and the Compazine up to every 6 hours as needed for nausea and vomiting. Take the Bentyl up to 4 times daily as needed for abdominal pain and cramping. Follow up with your primary care provider in 1-2 days. Prescriptions: Dicyclomine [Bentyl] 20 mg PO QID PRN #30 tablet PRN Reason: Pain Prochlorperazine [Compazine] 10 mg PO Q6H PRN #20 tab PRN Reason: Nausea And Vomiting Ketorolac [Toradol] 10 mg PO Q6HR PRN #15 tab PRN Reason: Pain Ondansetron Odt [Zofran Odt] 4 mg PO Q8HR PRN #20 tab PRN Reason: Nausea And Vomiting Is patient prescribed a controlled substance at d/c from ED?: No Referrals: Gaby Almonte MD [Primary Care Provider] - 1-2 days Time of Disposition: 22:27
[2024-08-24] MEDS: SODIUM CHLORIDE 0.9% 1,000 ML IV STA (16:55)
[2024-08-24] MEDS: KETOROLAC 15 MG/ML 1 ML VIAL IVP STA ×2 (16:55→20:40)
[2024-08-24] MEDS: ONDANSETRON 4 MG/2 ML VIAL IVP STA (16:56)
[2024-08-24] MEDS: MORPHINE SULFATE 4 MG/ML SYRINGE IVP STA (16:57)
[2024-08-24] MEDS: PANTOPRAZOLE 40 MG/10 ML VIAL IVP STA (16:58)
[2024-08-24 17:01] LABS: Basophils % (A) 0 %; Eosinophils # (A) 0.4 k/uL (0-0.7); Eosinophils % (A) 4 %; HCT 44.5 % (34.0-46.0); HGB 13.8 gm/dL (11.4-16.0); Lymphocytes # (A) 1.4 k/uL (1.0-4.8); Lymphocytes % (A) 13 %; MCH 28.1 pg (25.0-35.0); MCHC 30.9 g/dL (31.0-37.0); MCV 90.8 fL (80.0-100.0); Mean Platelet Volume 7.4; Monocytes # (A) 0.5 k/uL (0-1.0); Monocytes % (A) 5 %; Neutrophils # (A) 8.6 k/uL (1.3-7.7); Neutrophils % (A) 78 %; Platelet Count 345 k/uL (150-450)
[2024-08-24 17:08] LABS: Appearance,Urine Clear (Clear); Bilirubin,Urine Negative (Negative); Blood,Urine Negative (Negative); Color,Urine Light Yellow; Glucose,Urine (UA) Negative (Negative); Ketones,Urine Negative (Negative); Leukocyte Esterase,Urine Negative (Negative); Nitrite,Urine Negative (Negative); Protein,Urine Negative (Negative); Urobilinogen,Urine <2.0 mg/dL (<2.0)
[2024-08-24 17:09] LABS: ALT 23 U/L (4-34); AST 25 U/L (14-36); African American GFR (CKD) >90 (>60 ml/min/1.73 sqM); Albumin 3.7 g/dL (3.5-5.0); Alkaline Phosphatase 75 U/L (38-126); Amylase 59 U/L (30-110); Anion Gap 7 mmol/L; Blood Urea Nitrogen 16 mg/dL (7-17); Carbon Dioxide 22 mmol/L (22-30); Chloride 106 mmol/L (98-107); Glucose 93 mg/dL (74-99); Lipase 65 U/L (23-300); Non-African American GFR(CKD) >90 (>60 ml/min/1.73 sqM); Potassium 4.2 mmol/L (3.5-5.1); Sodium 135 mmol/L (137-145); Total Bilirubin 0.4 mg/dL (0.2-1.3); Total Protein 6.2 g/dL (6.3-8.2)
[2024-08-24] MEDS: HYDROmorphone 1 MG/ML 1 ML SYRINGE IVP STA (18:30)
[2024-08-24] MEDS: DICYCLOMINE 10 MG/ML 2 ML AMP IM STA (18:35)
[2024-08-24] MEDS: DEXAMETHASONE SOD PHOSPHATE 10 MG/ML 1 ML VIAL IVP STA (18:35)
[2024-08-24] MEDS: PROCHLORPERAZINE INJ 10 MG/2 ML VIAL IVP STA (18:52)
--- NOTE | 2024-08-24 18:54 | CT ---
EXAMINATION TYPE: CT abdomen pelvis wo con DATE OF EXAM: 08/24/2024 HISTORY: patient sent by PCP for vomiting/diarrhea over 24hours, tested negative for strep, flu, covi d. patient reports left tonsil swelling and rash on left chest/breasts, stiff neck and headache. CT DLP: 526.9 mGycm. Automated Exposure Control for Dose Reduction was Utilized. TECHNIQUE: CT scan of the abdomen and pelvis is performed without oral or IV contrast. COMPARISON: NONE FINDINGS: Within the limitations of a non-contrast study, the following observations are made. LUNG BASES: No significant abnormality is appreciated. LIVER/GB: Cholecystectomy clips are seen. PANCREAS: No significant abnormality is seen. SPLEEN: No significant abnormality is seen. ADRENALS: No significant abnormality is seen. KIDNEYS: No renal stones or hydronephrosis is seen bilaterally. BOWEL: Surgical changes from appendectomy seen at base of cecum. No abnormal small or large bowel dil atation. GENITAL ORGANS: Uterus is surgically absent or atrophic in appearance. Scattered small bilateral pelv ic phleboliths are present. LYMPH NODES: No greater than 1cm abdominal or pelvic lymph nodes are appreciated. OSSEOUS STRUCTURES: No significant abnormality is seen. OTHER: No significant additional abnormality is seen. IMPRESSION: No acute findings seen on noncontrast CT. [facility], , 08/24/2024 6:52 PM
[2024-08-24] MEDS: ORPHENADRINE 30 MG/ML 2 ML VIAL IVP STA (20:39)
[2024-08-24] MEDS: ACETAMINOPHEN TAB 500 MG TAB PO STA (20:41)
[2024-08-24] MEDS: METOCLOPRAMIDE 5 MG/ML 2 ML VIAL IVP STA (21:50)
[2024-08-24] MEDS: ONDANSETRON 4 MG ODT STARTER PACK 2 TAB BTL PO STA (22:28)
[2024-08-24] MEDS: IBUPROFEN 600 MG STARTER PACK 4 TAB BTL PO STA (22:28)
[2024-08-24] MEDS: ACET/COD 300 MG/30 MG STARTER PACK 6 TAB BTL PO STA (22:28)
[2024-08-24] MEDS: CYCLOBENZAPRINE 10MG STARTER 3 TAB BTL PO STA (22:30)
[2024-08-24 22:34] VITALS: BP 107/69; PULSE 66; RESP 19; TEMP 97.8
== END 2024-08-24 22:37 | disposition home or self-care (01) ==
LOC: EC 15:54
DX: B34.9 Viral infection, unspecified (principal); R11.2 Nausea with vomiting, unspecified; Z88.8 Allergy status to other drugs, medicaments and biological substances; Z88.5 Allergy status to narcotic agent; Z91.013 Allergy to seafood
CPT/HCPCS: 36415; 93005; 80053; 82150; 83605; 83690; 85025; 81003; 74176; 99285; 96374; 96375; 96376; 96372; 96361; J2270; J0500; J0780; J1100; J2360; J2765; J2405; J1171; J1885; S0119; J2470; 99284

== ENCOUNTER 2024-08-28 18:51 | Emergency (ER) | payer OTHER ==
[2024-08-28 19:04] VITALS: RESP 18; TEMP 97.5
--- NOTE | 2024-08-28 19:39 | XR ---
EXAMINATION TYPE: XR knee complete RT DATE OF EXAM: 08/28/2024 7:33 PM COMPARISON: None. CLINICAL INDICATION: Female, 49 years old with history of injury; PHH, pain TECHNIQUE: XR knee complete RT views submitted.. FINDINGS: No evidence of any acute osseous pathology, soft tissue swelling, or joint effusion is no humberto. IMPRESSION: 1. No acute osseous pathology. 2. Mild tricompartmental osteoarthritic changes. [facility], , 08/28/2024 7:37 PM
--- NOTE | 2024-08-28 19:41 | ED ---
General Adult HPI - General Chief complaint: Extremity Injury, Lower Stated complaint: knee pain Time Seen by Provider: 08/28/24 19:05 Source: patient Mode of arrival: ambulatory Limitations: no limitations - History of Present Illness Initial comments: 49-year-old female presenting with chief complaint of right knee pain. Patient was dancing yesterday and also lifting heavy boxes. At 2 different points in the day she felt and heard a pop in her knee. She is now mainly having pain over the lateral portion of her knee and states that her kneecap feels a bit unstable. She is having some swelling as well. No erythema or fever. No numbness tingling or weakness. - Related Data Home Medications Medication Instructions Recorded Confirmed Aspirin EC [Ecotrin Low Dose] 81 mg PO DAILY 11/20/17 01/09/21 Propranolol [Inderal] 40 mg PO DAILY PRN 01/09/21 01/09/21 Previous Rx's Medication Instructions Recorded Acetaminophen-Codeine 300-30mg 1 tab PO Q6H PRN 3 Days #12 tablet 02/10/22 [Tylenol w/codeine #3] Cyclobenzaprine [Flexeril] 10 mg PO TID PRN #15 tab 09/30/22 Diclofenac Sodium [Voltaren] 75 mg PO BID PRN #15 tab 09/30/22 Dicyclomine [Bentyl] 20 mg PO QID PRN #30 tablet 08/24/24 Ketorolac [Toradol] 10 mg PO Q6HR PRN #15 tab 08/24/24 Ondansetron Odt [Zofran Odt] 4 mg PO Q8HR PRN #20 tab 08/24/24 Prochlorperazine [Compazine] 10 mg PO Q6H PRN #20 tab 08/24/24 Allergies Allergy/AdvReac Type Severity Reaction Status Date / Time meperidine HCl [From Demerol] Allergy Nausea & Verified 08/28/24 19:04 Vomiting propoxyphene napsylate Allergy Nausea & Verified 08/28/24 19:04 [From Darvocet-N] Vomiting shellfish derived [Shellfish] Allergy Anaphylaxis Verified 08/28/24 19:04 mri iodine Allergy Anaphylaxis Uncoded 08/28/24 19:04 Review of Systems ROS Statement: Those systems with pertinent positive or pertinent negative responses have been documented in the HPI. ROS Other: All systems not noted in ROS Statement are negative. Past Medical History Past Medical History: Eye Disorder, Memory Impairment, Neurologic Disorder Additional Past Medical History / Comment(s): MIGRAINES. 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 NO SEIZURES SINCE 08/2106 WHILE IN THE HOSPITAL. CHRONIC NECK PAIN, in AUGUST AND NOVEMBER HAD BLOOD AFTER BM. COVID 08/21 History of Any Multi-Drug Resistant Organisms: None Reported Past Surgical History: Appendectomy, Cholecystectomy, Hysterectomy Additional Past Surgical History / Comment(s): COLONOSCOPY Past Anesthesia/Blood Transfusion Reactions: No Reported Reaction Past Psychological History: Anxiety, Depression Smoking Status: Never smoker Past Alcohol Use History: None Reported Past Drug Use History: None Reported - Past Family History Mother Family Medical History: Cancer General Exam Limitations: no limitations General appearance: alert, in no apparent distress Head exam: Present: atraumatic, normocephalic, normal inspection Eye exam: Present: normal appearance, EOMI Neck exam: Present: normal inspection. Absent: meningismus Respiratory exam: Absent: respiratory distress Cardiovascular Exam: Present: regular rate Right Knee exam: Present: tenderness, swelling. Absent: full ROM Neurovascular tendon exam: Present: no vascular compromise Neurological exam: Present: alert, oriented X3 Psychiatric exam: Present: normal affect, normal mood Skin exam: Present: warm, dry, intact Course Vital Signs 08/28/24 08/28/24 19:00 20:10 Temperature 97.5 F L Pulse Rate 73 61 Respiratory 18 18 Rate Blood Pressure 122/88 121/80 O2 Sat by Pulse 98 99 Oximetry Medical Decision Making - Medical Decision Making Was pt. sent in by a medical professional or institution (, PA, LOAN OFFICER, urgent care, hospital, or prison...) When possible be specific @ -No Did you speak to anyone other than the patient for history (EMS, parent, family, police, friend...)? What history was obtained from this source @ -No Did you review nursing and triage notes (agree or disagree)? Why? @ -I reviewed and agree with nursing and triage notes Were old charts reviewed (outside hosp., previous admission, EMS record, old EKG, old radiological studies, urgent care reports/EKG's, prison records)? Report findings @ -No old charts were reviewed Differential Diagnosis (chest pain, altered mental status, abdominal pain women, abdominal pain men, vaginal bleeding, weakness, fever, dyspnea, syncope, headache, dizziness, GI bleed, back pain, seizure, CVA, palpatations, mental health, musculoskeletal)? @ -Differential Musculoskeletal Muscular strain, contusion, ligament sprain, fracture, arthritis, septic arthritis, bursitis, cellulitis, muscle spasm, nerve compression, DVT, arterial occlusion, herpes zoster, electrolyte abnormality, tumor.... This is not meant to be in all inclusive list EKG interpreted by me (3pts min.). @ -As above X-rays interpreted by me (1pt min.). @ -X-rays show no acute osseous abnormality CT interpreted by me (1pt min.). @ -None done U/S interpreted by me (1pt. min.). @ -None done What testing was considered but not performed or refused? (CT, X-rays, U/S, labs)? Why? @ -None What meds were considered but not given or refused? Why? @ -None Did you discuss the management of the patient with other professionals (professionals i.e. , PA, LOAN OFFICER, lab, RT, psych nurse, social services, construction millwright, teacher, aerospace engineer officer armament, rn case management)? Give summary @ -No Was smoking cessation discussed for >3mins.? @ -No Was critical care preformed (if so, how long)? @ -No Were there social determinants of health that impacted care today? How? (Homelessness, low income, unemployed, alcoholism, drug addiction, transportation, low edu. Level, literacy, decrease access to med. care, alf, rehab)? @ -No Was there de-escalation of care discussed even if they declined (Discuss DNR or withdrawal of care, Hospice)? DNR status @ -No What co-morbidities impacted this encounter? (DM, HTN, Smoking, COPD, CAD, Cancer, CVA, ARF, Chemo, Hep., AIDS, mental health diagnosis, sleep apnea, morbid obesity)? @ -None Was patient admitted / discharged? Hospital course, mention meds given and route, prescriptions, significant lab abnormalities, going to OR and other pertinent info. @ -49-year-old female presenting chief complaint of knee pain. Patient injured the knee while dancing and moving heavy boxes yesterday. She has pain mainly to the lateral portion of the knee. She is neurovascularly intact. X-rays show no fracture or dislocation. She is placed in a knee immobilizer and instructed to use crutches, remain nonweightbearing and follow-up with orthopedics. Educated on supportive management at home. Follow-up with PCP. Report back to ER with any new or worsening symptoms. Discussed return parameters and answered all questions. Patient conveyed verbal understanding and agreed to the plan. I discussed this case in detail with my attending Dr. Adams Undiagnosed new problem with uncertain prognosis? @ -No Drug Therapy requiring intensive monitoring for toxicity (Heparin, Nitro, Insulin, Cardizem)? @ -No Were any procedures done? @ -No Diagnosis/symptom? @ -Knee sprain Acute, or Chronic, or Acute on Chronic? @ -Acute Uncomplicated (without systemic symptoms) or Complicated (systemic symptoms)? @ -Uncomplicated Side effects of treatment? @ -No Exacerbation, Progression, or Severe Exacerbation? @ -No Poses a threat to life or bodily function? How? (Chest pain, [place], [place], pneumonia, PE, COPD, DKA, ARF, appy, cholecystitis, CVA, Diverticulitis, Homicidal, Suicidal, threat to staff... and all critical care pts) @ -Potential if she does not follow-up with orthopedics Disposition Clinical Impression: Knee sprain Disposition: HOME SELF-CARE Condition: Good Instructions (If sedation given, give patient instructions): Knee Sprain (ED) Additional Instructions: Follow-up with orthopedics. Report back to ER with any new or worsening symptoms. Take Motrin and Tylenol as needed for pain control. Rest ice compress and elevate the knee. Use your knee immobilizer and crutches, remain nonweightbearing until cleared by orthopedics Is patient prescribed a controlled substance at d/c from ED?: No Referrals: Gaby Almonte MD [Primary Care Provider] - 1-2 days Jhonatan Miranda MD [Medical Doctor] - 1-2 days Time of Disposition: 19:41
[2024-08-28] MEDS: KETOROLAC 15 MG/ML 1 ML VIAL IM STA (19:55)
[2024-08-28] MEDS: DEXAMETHASONE SOD PHOSPHATE 10 MG/ML 1 ML VIAL IM STA (19:55)
[2024-08-28] MEDS: ACET/COD 300 MG/30 MG STARTER PACK 6 TAB BTL PO STA (19:56)
[2024-08-28 20:27] VITALS: BP 121/80; PULSE 61
== END 2024-08-28 20:10 | disposition home or self-care (01) ==
LOC: EC 18:51
DX: S83.91XA Sprain of unspecified site of right knee, initial encounter (principal); Z88.5 Allergy status to narcotic agent; Z88.8 Allergy status to other drugs, medicaments and biological substances; Z91.013 Allergy to seafood; X50.0XXA Overexertion from strenuous movement or load, initial encounter
CPT/HCPCS: 73562; 99283; 96372 ×2; L1830 ×2; J1100; J1885

== ENCOUNTER 2024-09-14 22:44 | Emergency (ER) | payer OTHER ==
[2024-09-15] MEDS: ACETAMINOPHEN TAB 325 MG TAB PO STA (00:08)
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
[2024-09-15 01:34] VITALS: BP 121/85; PULSE 75; RESP 18; TEMP 97.8
[2024-09-15] MEDS: ORPHENADRINE 30 MG/ML 2 ML VIAL IM STA (01:46)
== END 2024-09-15 01:53 | disposition home or self-care (01) ==
LOC: EC 22:44
DX: M79.632 Pain in left forearm (principal); M54.2 Cervicalgia; Z88.5 Allergy status to narcotic agent; Z88.8 Allergy status to other drugs, medicaments and biological substances; Z91.041 Radiographic dye allergy status; Z91.013 Allergy to seafood; Z86.16 Personal history of COVID-19; V40.6XXA Car passenger injured in collision with pedestrian or animal in traffic accident, initial encounter; Y92.410 Unspecified street and highway as the place of occurrence of the external cause
CPT/HCPCS: 73090; 99283; 96372; J2360

== ENCOUNTER 2024-09-15 17:17 | Emergency (ER) | payer OTHER ==
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
[2024-09-15 19:05] LABS: Basophils % (A) 1 %; Eosinophils # (A) 0.2 k/uL (0-0.7); Eosinophils % (A) 2 %; HCT 48.1 % (34.0-46.0); HGB 14.9 gm/dL (11.4-16.0); Lymphocytes # (A) 1.5 k/uL (1.0-4.8); Lymphocytes % (A) 21 %; MCH 28.3 pg (25.0-35.0); MCV 91.3 fL (80.0-100.0); Mean Platelet Volume 7.1; Monocytes # (A) 0.4 k/uL (0-1.0); Monocytes % (A) 5 %; Neutrophils % (A) 69 %; Platelet Count 350 k/uL (150-450); RBC 5.26 m/uL (3.80-5.40); RDW 13.4 % (11.5-15.5); WBC 7.3 k/uL (3.8-10.6)
[2024-09-15] MEDS: ONDANSETRON 4 MG/2 ML VIAL IVP STA (19:18)
[2024-09-15] MEDS: SODIUM CHLORIDE 0.9% 1,000 ML IV ONE (19:18)
[2024-09-15] MEDS: HYDROmorphone 0.5 MG/0.5 ML SYRINGE IVP STA (19:19)
[2024-09-15 19:20] LABS: Partial Thromboplastin Time 24.4 sec (22.0-30.0); Prothrombin Time 10.8 sec (10.0-12.5)
[2024-09-15] MEDS: ACETAMINOPHEN IV (For NPO) 1,000 MG in EMPTY BAG 1 BAG IVPB STA (19:23)
[2024-09-15 19:27] LABS: ALT 26 U/L (4-34); AST 28 U/L (14-36); African American GFR (CKD) >90 (>60 ml/min/1.73 sqM); Albumin 4.9 g/dL (3.5-5.0); Alkaline Phosphatase 94 U/L (38-126); Anion Gap 11 mmol/L; Blood Urea Nitrogen 12 mg/dL (7-17); Calcium 10.2 mg/dL (8.4-10.2); Carbon Dioxide 24 mmol/L (22-30); Chloride 104 mmol/L (98-107); Glucose 94 mg/dL (74-99); Non-African American GFR(CKD) 79 (>60 ml/min/1.73 sqM); Potassium 3.8 mmol/L (3.5-5.1); Sodium 139 mmol/L (137-145); Total Bilirubin 0.8 mg/dL (0.2-1.3); Total Protein 8.2 g/dL (6.3-8.2)
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
[2024-09-15] MEDS: KETOROLAC 15 MG/ML 1 ML VIAL IVP STA (20:58)
[2024-09-15] MEDS: DEXAMETHASONE SOD PHOSPHATE 10 MG/ML 1 ML VIAL IVP STA (21:00)
[2024-09-15] MEDS: diphenhydrAMINE 50 MG/ML 1 ML VIAL IVP STA (21:01)
[2024-09-15] MEDS: METOCLOPRAMIDE 5 MG/ML 2 ML VIAL IVP STA (21:03)
[2024-09-15] MEDS: ACET/COD 300 MG/30 MG STARTER PACK 6 TAB BTL PO STA (22:34)
[2024-09-15] MEDS: ONDANSETRON 4 MG ODT STARTER PACK 2 TAB BTL PO STA (22:34)
[2024-09-15 22:43] VITALS: BP 103/66; PULSE 57; RESP 16; TEMP 98.1
== END 2024-09-15 22:43 | disposition home or self-care (01) ==
LOC: EC 17:17
DX: S16.1XXA Strain of muscle, fascia and tendon at neck level, initial encounter (principal); S09.90XA Unspecified injury of head, initial encounter; R11.2 Nausea with vomiting, unspecified; Z88.5 Allergy status to narcotic agent; Z88.8 Allergy status to other drugs, medicaments and biological substances; Z91.041 Radiographic dye allergy status; Z91.013 Allergy to seafood; V89.2XXA Person injured in unspecified motor-vehicle accident, traffic, initial encounter
CPT/HCPCS: 36415; 93005; 80053; 84484; 85025; 85610; 85730; 72125; 70450; 99284; 96374; 96375; 96361 ×2; J1200; J1100; J2765; J2405; J0131; J1885; S0119; J1171